=== PATIENT | male | born 1980 | race Hispanic/Latino ===

== ENCOUNTER 2018-11-19 22:41 | Emergency (ER) | payer OTHER ==
[2018-11-19] MEDS ORDERED: ONDANSETRON HCL 4 MG/2 ML VIAL ONE (23:30)
[2018-11-19] MEDS ORDERED: CEFTRIAXONE SODIUM 1 GM ONE (23:30)
[2018-11-19] MEDS ORDERED: TETANUS/DIPHTHERIA TOXOID [ADULT] 0.5 ML VIAL IM ONE (23:31)
[2018-11-19] MEDS ORDERED: MORPHINE SULFATE 4 MG/1ML SYG ONE (23:31)
[2018-11-20] MEDS ORDERED: AMOXICILLIN/POTASSIUM CLAV 875-125 TABLET PO ONE (00:13)
== END 2018-11-20 00:25 | disposition home or self-care (01) ==
LOC: EDH 22:41
DX: S61.531A Puncture wound without foreign body of right wrist, initial encounter (principal); Z88.6 Allergy status to analgesic agent; Z72.0 Tobacco use; W55.01XA Bitten by cat, initial encounter; Y93.89 Activity, other specified; Y92.098 Other place in other non-institutional residence as the place of occurrence of the external cause; Y99.8 Other external cause status
CPT/HCPCS: 90471; 90714; 96374; 96375; 99283; J0696; J2270; J2405